=== PATIENT | female | born 1940 | race Caucasian/White ===

== ENCOUNTER 2017-05-11 12:33 | Emergency (ER) | payer OTHER ==
[~2017-05-11] VITALS: Ht 160 cm; Wt 62.7 kg
[2017-05-11] MEDS ORDERED: PREDNISONE10 MG PO (13:21)
[2017-05-11] MEDS ORDERED: ULTRAM50 MG PO (13:21)
[2017-05-11 14:11] VITALS: BP 137/80
== END 2017-05-11 14:20 | disposition home or self-care (01) ==
LOC: EME 12:33
DX: M54.31 Sciatica, right side (principal); Z88.5 Allergy status to narcotic agent; Z88.6 Allergy status to analgesic agent; Z79.02 Long term (current) use of antithrombotics/antiplatelets
CPT/HCPCS: 99281; 99283; J1100; J3010

== ENCOUNTER 2017-05-15 10:43 | Emergency (ER) | payer OTHER ==
[~2017-05-15] VITALS: Ht 157.5 cm; Wt 63.5 kg
[~2017-05-15 10:43] MED LIST: PREDNISONE10 MG PO; ULTRAM50 MG PO
[2017-05-15] MEDS ORDERED: PLAVIX75 MG PO (12:46)
[2017-05-15] MEDS ORDERED: PLETAL PO (12:47)
[2017-05-15] MEDS ORDERED: LOSARTAN-HCTZ1 EAC1 PO (12:47)
[2017-05-15] MEDS ORDERED: SIMVASTATIN40 MG PO (12:48)
[2017-05-15] MEDS ORDERED: METOPROLOL SUCC50 MG PO (12:49)
[2017-05-15] MEDS ORDERED: ASPIR 8181 M1 PO (12:50)
[2017-05-15 14:05] LABS: BASOPHIL (%) 0.1 % (0-1); EOSINOPHIL (%) 0 % (0-5); HEMATOCRIT 38.8 % (36.0-46.0); HEMOGLOBIN 13.2 G/DL (11.9-15.5); IMMATURE GRANULOCYTE (%) 1.3 % (0.0-0.7); LYMPHOCYTE (%) 16.7 % (15-42); LYMPHOCYTE COUNT 1.5 K/uL (1.0-2.8); MCH 31.7 PG (29.0-34.0); MCV 93.3 FL (83-99); MONOCYTE (%) 1.6 % (3-12); MONOCYTE COUNT 0.1 K/uL (0-0.8); NEUTROPHIL (%) 80.3 % (45-76); NEUTROPHIL COUNT 7.3 K/uL (1.8-6.4); PLATELET COUNT 286 K/uL (156-360); RBC DIS.WIDTH-CV 12.5 % (11.8-14.6); RED BLOOD COUNT 4.16 M/uL (3.80-5.20)
[2017-05-15 14:13] LABS: ALBUMIN 3.9 g/dL (3.2-4.8); CHLORIDE 100 mEq/L (99-109); POTASSIUM 4.2 mEq/L (3.7-5.4); SODIUM 136 mEq/L (136-147)
[2017-05-15 14:16] LABS: GLUCOSE 128 mg/dL (70-99); TOTAL PROTEIN 7.1 g/dL (6.4-8.3)
[2017-05-15 14:17] LABS: TOTAL BILIRUBIN 0.4 mg/dL (0.0-1.0)
[2017-05-15 14:19] LABS: ALKALINE PHOSPHATASE 48 IU/L (3-129); CREATININE 0.9 mg/dL (0.6-1.3); GFR ESTIMATE (CALCULATED) > 59 mL/min/
[2017-05-15 14:20] LABS: UREA NITROGEN (BUN) 28 mg/dL (9-23)
[2017-05-15 14:21] LABS: AST (GOT) 9 IU/L (2-34); DIRECT BILIRUBIN 0.1 mg/dL (0.0-0.3)
[2017-05-15 14:22] LABS: ALT (GPT) 15 IU/L (3-49)
[2017-05-15 14:23] LABS: LIPASE 171 U/L (1.0-51.0)
[2017-05-15 14:49] LABS: ERTH.SED.RATE 20 MM/HR (0-30)
[2017-05-15 15:15] VITALS: BP 172/86
[2017-05-15] MEDS ORDERED: ZOFRAN ODT4 MG PO (16:31)
[2017-05-15] MEDS ORDERED: MOBIC7.5 MG PO (16:31)
== END 2017-05-15 17:59 | disposition home or self-care (01) ==
LOC: EME 10:43
PROVIDERS: Physician Assistant
DX: M16.0 Bilateral primary osteoarthritis of hip (principal); Z87.891 Personal history of nicotine dependence; Z88.5 Allergy status to narcotic agent; Z88.6 Allergy status to analgesic agent
CPT/HCPCS: 74177; 80048; 80076; 83690; 85025; 85651; 86140; 99281; 99285; J1100; J7050